=== PATIENT | female | born 1945 | race African-American/Black ===

== ENCOUNTER 2018-08-30 16:01 | Inpatient (IN) | payer MEDICARE, OTHER ==
[~2018-08-30] VITALS: Ht 157.5 cm; Wt 79.5 kg
[~2018-08-30 16:01] MED LIST: CLOP75TA33 PO; FLUT1DIS IH; FURO40TA5 PO; INSU3INS6 SUBCUT; LEVO25TA7 PO; NATE120T PO; NIAC500T23 PO; POTA10CA42 PO; ROSU5TAB PO; SITA50TA3 PO
[2018-08-30 17:28] LABS: BASOPHILS % 1.3 % (0.0-2.0); EOSINOPHILS % 1.6 % (0.0-5.0); HEMOGLOBIN. 11.9 g/dL (12.0-16.0); LYMPHOCYTES % 24.2 % (20.0-50.0); MEAN CORPUSCULAR HEMOGLOBIN 26.4 pg (28.0-32.0); MEAN CORPUSCULAR VOLUME 82.1 fL (81.0-99.0); MONOCYTES % 7.1 % (2.0-8.0); NEUTROPHILS % 65.8 % (40.0-76.0); PLATELET 294 x1000/uL (130-400); RED CELL DISTRIBUTION WIDTH 16.3 % (11.6-14.6)
[2018-08-30 17:32] LABS: INR 0.9; PROTHROMBIN TIME 9.5 sec (9.1-11.1)
[2018-08-30 17:33] LABS: CHLORIDE 113 mEq/L (98-107)
[2018-08-30] MEDS ORDERED: GUAIFENESIN 200MG/10ML SUGAR FREE UDC PO PRN (18:15)
[2018-08-30] MEDS ORDERED: ONDANSETRON HCL 4MG/2ML INJ IV PRN (18:15)
[2018-08-30] MEDS ORDERED: ZOLPIDEM TARTRATE 5MG TABLET PO PRN (18:15)
[2018-08-30] MEDS ORDERED: NITROGLYCERIN 0.4MG TABLET SL SL PRN (18:15)
[2018-08-30] MEDS ORDERED: CLONIDINE 0.1MG TABLET PO PRN (18:15)
[2018-08-30] MEDS ORDERED: ACETAMINOPHEN 325MG TABLET PO PRN (18:15)
[2018-08-30] MEDS ORDERED: MAGNESIUM/ALUMINUM HYDROXIDE/SIMETHICONE 30ML UDC PO PRN (18:15)
[2018-08-30] MEDS ORDERED: IPRATROPIUM/ALBUTEROL 0.5-3(2.5)MG/3ML NEB INH PRN (18:15)
[2018-08-30] MEDS ORDERED: DEXTROSE 50% WATER 50ML SYRINGE IV PRN (18:15)
[2018-08-30] MEDS ORDERED: ALBUTEROL (0.083%) 2.5MG/3ML NEB HHN ONE (18:15)
[2018-08-30 18:35] LABS: PHOSPHORUS 5.4 mg/dL (2.5-4.9)
[2018-08-30 18:39] LABS: T4 FREE 1.21 ng/dL (0.76-1.46)
[2018-08-30] MEDS ORDERED: TEMAZEPAM 15MG CAPSULE PO PRN (18:45)
[2018-08-30 18:58] LABS: FOLIC ACID (FOLATE) SERUM 8.4 ng/mL (>5.38)
[2018-08-30 19:04] LABS: HEPATITIS B SURFACE AB < 3.1 mIU/mL
[2018-08-30 19:15] LABS: HEPATITIS B SURFACE ANTIGEN NEGATIVE
[2018-08-30 19:44] LABS: HEPATITIS A AB IGM NEGATIVE (NEGATIVE)
[2018-08-30 19:52] LABS: BG BASE EXCESS -6.8 mmol/L (-2.0-2.0); BG CARBOXYHEMOGLOBIN 0.6 % (0.5-1.5); BG DEOXYHEMOGLOBIN 5.5 % (0.0-5.0); BG FRACTION INSPIRED OXYGEN 24; BG HCO3 ACT 16.9 mmol/L (22.0-26.0); BG METHEMOGLOBIN 0.3 % (0.0-1.5); BG OXYGEN SATURATION 94.5 % (92.0-98.5); BG OXYHEMOGLOBIN 93.6 % (94.0-97.0); BG PCO2 28.5 mmHg (35.0-45.0); BG PH 7.391 (7.350-7.450); BG PO2 73.3 mmHg (75.0-100.0); BG SAMPLE SITE RIGHT RADIAL; BG TOTAL HEMOGLOBIN 11.3 g/dL (12.0-18.0); BG VENT MODE NASAL CANNULA
[2018-08-30] MEDS ORDERED: TRAMADOL 50MG TABLET PO PRN (21:28)
[2018-08-30] MEDS ORDERED: MORPHINE SULFATE 4 MG/ML CPJ (NOT FOR IM USE) IV PRN (21:29)
[2018-08-30] MEDS: BLOOD SUGAR DIAGNOSTIC STRIP TEST SCH (22:00)
[2018-08-30] MEDS ORDERED: INSULIN GLARGINE UD 100 UNITS/ML SYR SUBCUT SCH (22:00)
[2018-08-30] MEDS: INSULIN LISPRO 100 UNITS/ML SUBCUT SCH (22:02)
[2018-08-30 23:00] VITALS: BP_SYST 130; BP_SYST 138; BP_DIAS 60; BP_DIAS 68
[2018-08-30 23:11] LABS: CREATINE KINASE MB FRACTION 1.6 ng/mL (0.5-3.6)
[2018-08-30] MEDS: FUROSEMIDE 40MG/4ML VIAL IVP SCH (23:53)
[2018-08-30] MEDS: METOPROLOL TARTRATE 25MG TABLET PO SCH (23:53)
[2018-08-30] MEDS: ATORVASTATIN CALCIUM 10MG TABLET PO SCH (23:53)
[2018-08-31] VITALS (17 sets, daily range): BP systolic 123–169; BP diastolic 56–88
[2018-08-31] MEDS ORDERED: METOLAZONE 10MG TABLET PO NR
[2018-08-31] MEDS ORDERED: INSULIN GLARGINE UD 100 UNITS/ML SYR SUBCUT SCH (01:00)
[2018-08-31] MEDS: IPRATROPIUM/ALBUTEROL 0.5-3(2.5)MG/3ML NEB INH SCH ×4 (05:09→21:54)
[2018-08-31] MEDS: BLOOD SUGAR DIAGNOSTIC STRIP TEST SCH ×4 (06:15→20:58)
[2018-08-31] MEDS: INSULIN LISPRO 100 UNITS/ML SUBCUT SCH ×4 (06:15→21:12)
[2018-08-31] MEDS: FUROSEMIDE 40MG/4ML VIAL IVP SCH (06:29)
[2018-08-31 07:03] LABS: EOSINOPHILS % 1.8 % (0.0-5.0); HEMATOCRIT. 30.5 % (36.0-48.0); HEMOGLOBIN. 9.8 g/dL (12.0-16.0); LYMPHOCYTES % 43.9 % (20.0-50.0); MEAN CORPUSCULAR HEMOGLOBIN 26.5 pg (28.0-32.0); MEAN CORPUSCULAR VOLUME 81.9 fL (81.0-99.0); MEAN PLATELET VOLUME 8.5 fl (7.4-10.4); MONOCYTES % 10.8 % (2.0-8.0); NEUTROPHILS % 42.5 % (40.0-76.0); PLATELET 253 x1000/uL (130-400); RED BLOOD CELL COUNT 3.72 mill/uL (4.2-5.4); RED CELL DISTRIBUTION WIDTH 16.1 % (11.6-14.6)
[2018-08-31 07:07] LABS: CHLORIDE 113 mEq/L (98-107)
[2018-08-31 07:32] LABS: CREATINE KINASE 61 IU/L (26-192)
[2018-08-31 07:35] LABS: CREATINE KINASE MB FRACTION 1.7 ng/mL (0.5-3.6)
[2018-08-31] MEDS ORDERED: SORBITOL 70% SOLN 30ML PO NR (08:30)
[2018-08-31] MEDS ORDERED: ALPRAZOLAM 0.25 MG TABLET PO NR (08:30)
[2018-08-31] MEDS ORDERED: CEFAZOLIN 1000MG PREMIX 50 ML IV ONE ×2 (08:45→09:32)
[2018-08-31] MEDS ORDERED: CITRIC ACID/SODIUM CITRATE SOLN 15ML UDC PO SCH (09:00)
[2018-08-31] MEDS: METOPROLOL TARTRATE 25MG TABLET PO SCH (09:00)
[2018-08-31] MEDS: ASPIRIN 81MG EC TABLET PO SCH (09:00)
[2018-08-31] MEDS ORDERED: ASPIRIN 325MG EC TABLET PO SCH (09:00)
[2018-08-31] MEDS ORDERED: FENTANYL CITRATE/PF 50MCG/ML 2ML VIAL ONE (09:33)
[2018-08-31] MEDS ORDERED: SODIUM BICARBONATE 4% (2.4MEQ) 5ML VIAL IV ONE (09:33)
[2018-08-31] MEDS ORDERED: LIDOCAINE HCL 1% 20ML VIAL (Pyxis) INJ ONE (09:33)
[2018-08-31] MEDS ORDERED: HEPARIN 1000 UNITS/ML 10ML ONE (09:33)
[2018-08-31] MEDS ORDERED: MIDAZOLAM HCL 2 MG/2 ML VIAL ONE (10:07)
[2018-08-31] MEDS ORDERED: FENTANYL CITRATE/PF 50MCG/ML 2ML VIAL IV ONE (10:15)
[2018-08-31] MEDS ORDERED: MIDAZOLAM HCL 2 MG/2 ML VIAL IV NR (10:15)
[2018-08-31] MEDS: LINAGLIPTIN 5MG TABLET PO SCH (12:49)
[2018-08-31] MEDS: FAMOTIDINE 20MG TABLET PO SCH (12:49)
[2018-08-31] MEDS: DILTIAZEM HCL 180MG CAPSULE CD 24HR PO SCH (12:49)
[2018-08-31] MEDS: FOLIC ACID/VITAMIN B COMP W-C TABLET PO SCH (12:49)
[2018-08-31] MEDS: DOCUSATE SODIUM 100MG CAPSULE PO PRN (12:52)
[2018-08-31] MEDS: CITALOPRAM HYDROBROMIDE 10MG TABLET PO SCH (18:11)
[2018-08-31] MEDS: ATORVASTATIN CALCIUM 10MG TABLET PO SCH (21:12)
[2018-08-31] MEDS: INSULIN GLARGINE UD 100 UNITS/ML SYR SUBCUT SCH (21:59)
[2018-09-01] VITALS: BP 128/70
[2018-09-01] MEDS: IPRATROPIUM/ALBUTEROL 0.5-3(2.5)MG/3ML NEB INH SCH ×3 (02:00→20:46)
[2018-09-01 04:00] VITALS: BP 137/69
[2018-09-01] MEDS: BLOOD SUGAR DIAGNOSTIC STRIP TEST SCH ×4 (06:11→20:50)
[2018-09-01] MEDS: INSULIN LISPRO 100 UNITS/ML SUBCUT SCH ×4 (06:17→21:40)
[2018-09-01] MEDS: LEVOTHYROXINE SODIUM 25MCG TABLET PO SCH (06:17)
[2018-09-01 08:00] VITALS: BP 148/62
[2018-09-01] MEDS: FOLIC ACID/VITAMIN B COMP W-C TABLET PO SCH (10:43)
[2018-09-01] MEDS: DILTIAZEM HCL 180MG CAPSULE CD 24HR PO SCH (10:44)
[2018-09-01] MEDS: FAMOTIDINE 20MG TABLET PO SCH (10:44)
[2018-09-01] MEDS: ASPIRIN 81MG EC TABLET PO SCH (10:44)
[2018-09-01] MEDS: FUROSEMIDE 40MG/4ML VIAL IVP SCH (10:44)
[2018-09-01] MEDS: CITALOPRAM HYDROBROMIDE 10MG TABLET PO SCH (10:44)
[2018-09-01] MEDS: LINAGLIPTIN 5MG TABLET PO SCH (10:44)
[2018-09-01 12:00] VITALS: BP 133/66
[2018-09-01] MEDS ORDERED: SORBITOL 70% SOLN 30ML PO NR (16:15)
[2018-09-01 17:00] VITALS: BP 131/49
[2018-09-01] MEDS: DOCUSATE SODIUM 100MG CAPSULE PO PRN (17:34)
[2018-09-01 17:58] LABS: BASOPHILS % 0.3 % (0.0-2.0); EOSINOPHILS % 1.8 % (0.0-5.0); HEMATOCRIT. 32.3 % (36.0-48.0); HEMOGLOBIN. 10.6 g/dL (12.0-16.0); LYMPHOCYTES % 25.5 % (20.0-50.0); MEAN CORPUSCULAR HEMOGLOBIN 26.6 pg (28.0-32.0); MEAN CORPUSCULAR VOLUME 81.5 fL (81.0-99.0); MEAN PLATELET VOLUME 8.8 fl (7.4-10.4); MONOCYTES % 11.4 % (2.0-8.0); PLATELET 244 x1000/uL (130-400); RED BLOOD CELL COUNT 3.96 mill/uL (4.2-5.4); RED CELL DISTRIBUTION WIDTH 16.1 % (11.6-14.6)
[2018-09-01 18:16] LABS: PHOSPHORUS 4.2 mg/dL (2.5-4.9)
[2018-09-01 20:00] VITALS: BP 136/70
[2018-09-01] MEDS: ATORVASTATIN CALCIUM 10MG TABLET PO SCH (21:39)
[2018-09-01] MEDS: INSULIN GLARGINE UD 100 UNITS/ML SYR SUBCUT SCH (21:40)
[2018-09-02] VITALS: BP 136/80
[2018-09-02] MEDS: IPRATROPIUM/ALBUTEROL 0.5-3(2.5)MG/3ML NEB INH SCH ×3 (01:46→20:14)
[2018-09-02 04:00] VITALS: BP 147/59
[2018-09-02] MEDS: BLOOD SUGAR DIAGNOSTIC STRIP TEST SCH ×4 (06:38→20:22)
[2018-09-02] MEDS: LEVOTHYROXINE SODIUM 25MCG TABLET PO SCH (06:42)
[2018-09-02] MEDS: INSULIN LISPRO 100 UNITS/ML SUBCUT SCH ×4 (06:43→21:12)
[2018-09-02 07:16] LABS: BASOPHILS % 0.7 % (0.0-2.0); EOSINOPHILS % 1.9 % (0.0-5.0); HEMATOCRIT. 30.2 % (36.0-48.0); HEMOGLOBIN. 9.7 g/dL (12.0-16.0); LYMPHOCYTES % 40.3 % (20.0-50.0); MEAN CORPUSCULAR HEMOGLOBIN 26.5 pg (28.0-32.0); MEAN PLATELET VOLUME 8.1 fl (7.4-10.4); MONOCYTES % 11.4 % (2.0-8.0); NEUTROPHILS % 45.7 % (40.0-76.0); PLATELET 227 x1000/uL (130-400); RED BLOOD CELL COUNT 3.68 mill/uL (4.2-5.4); RED CELL DISTRIBUTION WIDTH 15.8 % (11.6-14.6)
[2018-09-02 07:50] LABS: PHOSPHORUS 4.6 mg/dL (2.5-4.9)
[2018-09-02 08:00] VITALS: BP 147/61
[2018-09-02] MEDS: FOLIC ACID/VITAMIN B COMP W-C TABLET PO SCH (08:41)
[2018-09-02] MEDS: CITALOPRAM HYDROBROMIDE 10MG TABLET PO SCH (08:41)
[2018-09-02] MEDS: LINAGLIPTIN 5MG TABLET PO SCH (08:42)
[2018-09-02] MEDS: FAMOTIDINE 20MG TABLET PO SCH (08:42)
[2018-09-02] MEDS: ASPIRIN 81MG EC TABLET PO SCH (08:42)
[2018-09-02] MEDS: DILTIAZEM HCL 180MG CAPSULE CD 24HR PO SCH (08:42)
[2018-09-02] MEDS: FUROSEMIDE 40MG/4ML VIAL IVP SCH (08:43)
[2018-09-02] MEDS: ENOXAPARIN 40MG/0.4ML SYR SUBCUT SCH (08:45)
[2018-09-02 12:00] VITALS: BP 146/47
[2018-09-02] MEDS ORDERED: POLYETHYLENE GLYCOL 3350 (17GM) 1 DOSE PACK PO NR (14:00)
[2018-09-02 16:00] VITALS: BP 169/79
[2018-09-02 20:00] VITALS: BP 140/80
[2018-09-02] MEDS: ATORVASTATIN CALCIUM 10MG TABLET PO SCH (20:16)
[2018-09-02] MEDS: INSULIN GLARGINE UD 100 UNITS/ML SYR SUBCUT SCH (21:12)
[2018-09-03] VITALS: BP 122/80
[2018-09-03] MEDS: IPRATROPIUM/ALBUTEROL 0.5-3(2.5)MG/3ML NEB INH SCH ×3 (01:54→22:22)
[2018-09-03 04:00] VITALS: BP 150/70
[2018-09-03] MEDS: INSULIN LISPRO 100 UNITS/ML SUBCUT SCH ×5 (06:01→22:01)
[2018-09-03] MEDS: LEVOTHYROXINE SODIUM 25MCG TABLET PO SCH (06:01)
[2018-09-03] MEDS: BLOOD SUGAR DIAGNOSTIC STRIP TEST SCH ×4 (06:01→20:35)
[2018-09-03 06:39] LABS: BASOPHILS % 1.1 % (0.0-2.0); HEMATOCRIT. 30.7 % (36.0-48.0); LYMPHOCYTES % 39.4 % (20.0-50.0); MEAN CORPUSCULAR HEMOGLOBIN 26.7 pg (28.0-32.0); MEAN CORPUSCULAR VOLUME 82.2 fL (81.0-99.0); MEAN PLATELET VOLUME 8.5 fl (7.4-10.4); NEUTROPHILS % 46.5 % (40.0-76.0); PLATELET 225 x1000/uL (130-400); RED BLOOD CELL COUNT 3.74 mill/uL (4.2-5.4)
[2018-09-03 07:43] LABS: PHOSPHORUS 5.3 mg/dL (2.5-4.9)
[2018-09-03 08:00] VITALS: BP 149/78
[2018-09-03] MEDS: ENOXAPARIN 40MG/0.4ML SYR SUBCUT SCH ×2 (09:00→13:09)
[2018-09-03] MEDS: ASPIRIN 81MG EC TABLET PO SCH ×2 (09:00→13:08)
[2018-09-03] MEDS: DILTIAZEM HCL 300MG CAPSULE SR 24HR PO SCH (09:00)
[2018-09-03] MEDS: FUROSEMIDE 40MG/4ML VIAL IVP SCH (09:00)
[2018-09-03] MEDS: LINAGLIPTIN 5MG TABLET PO SCH ×2 (09:00→13:08)
[2018-09-03] MEDS: FOLIC ACID/VITAMIN B COMP W-C TABLET PO SCH ×2 (09:00→13:09)
[2018-09-03] MEDS: FAMOTIDINE 20MG TABLET PO SCH ×2 (09:00→13:08)
[2018-09-03] MEDS: CITALOPRAM HYDROBROMIDE 10MG TABLET PO SCH ×2 (09:00→13:08)
[2018-09-03 11:51] VITALS: BP 158/64
[2018-09-03 15:50] VITALS: BP 161/83
[2018-09-03] MEDS ORDERED: HEPARIN SODIUM 1,000 UNIT/1ML VIAL IV NR (16:15)
[2018-09-03 20:00] VITALS: BP 160/81
[2018-09-03] MEDS: ATORVASTATIN CALCIUM 10MG TABLET PO SCH (21:19)
[2018-09-03] MEDS: INSULIN GLARGINE UD 100 UNITS/ML SYR SUBCUT SCH (21:24)
[2018-09-04] VITALS: BP 166/73
[2018-09-04] MEDS: IPRATROPIUM/ALBUTEROL 0.5-3(2.5)MG/3ML NEB INH SCH ×2 (02:40→07:33)
[2018-09-04 04:01] VITALS: BP 164/84
[2018-09-04] MEDS: BLOOD SUGAR DIAGNOSTIC STRIP TEST SCH ×4 (05:22→21:00)
[2018-09-04] MEDS: LEVOTHYROXINE SODIUM 25MCG TABLET PO SCH (05:42)
[2018-09-04] MEDS: INSULIN LISPRO 100 UNITS/ML SUBCUT SCH ×4 (05:49→21:36)
[2018-09-04 08:00] VITALS: BP 132/67
[2018-09-04] MEDS: FOLIC ACID/VITAMIN B COMP W-C TABLET PO SCH (09:06)
[2018-09-04] MEDS: LINAGLIPTIN 5MG TABLET PO SCH (09:06)
[2018-09-04] MEDS: FAMOTIDINE 20MG TABLET PO SCH (09:06)
[2018-09-04] MEDS: CITALOPRAM HYDROBROMIDE 10MG TABLET PO SCH (09:09)
[2018-09-04] MEDS: DILTIAZEM HCL 300MG CAPSULE SR 24HR PO SCH (09:09)
[2018-09-04] MEDS: ENOXAPARIN 40MG/0.4ML SYR SUBCUT SCH (09:10)
[2018-09-04] MEDS: ASPIRIN 81MG EC TABLET PO SCH (09:14)
[2018-09-04 12:00] VITALS: BP 138/67
[2018-09-04 16:00] VITALS: BP 149/63
[2018-09-04 20:00] VITALS: BP 138/78
[2018-09-04] MEDS: ATORVASTATIN CALCIUM 10MG TABLET PO SCH (21:34)
[2018-09-04] MEDS: INSULIN GLARGINE UD 100 UNITS/ML SYR SUBCUT SCH (21:36)
[2018-09-05] VITALS: BP 152/67
[2018-09-05 04:00] VITALS: BP 140/71
[2018-09-05] MEDS: BLOOD SUGAR DIAGNOSTIC STRIP TEST SCH ×2 (05:50→12:11)
[2018-09-05] MEDS: LEVOTHYROXINE SODIUM 25MCG TABLET PO SCH (05:51)
[2018-09-05] MEDS: INSULIN LISPRO 100 UNITS/ML SUBCUT SCH ×2 (06:02→12:11)
[2018-09-05 06:58] LABS: BASOPHILS % 1.3 % (0.0-2.0); EOSINOPHILS % 1.7 % (0.0-5.0); HEMATOCRIT. 34.4 % (36.0-48.0); HEMOGLOBIN. 11.1 g/dL (12.0-16.0); LYMPHOCYTES % 39.7 % (20.0-50.0); MEAN CORPUSCULAR VOLUME 83.7 fL (81.0-99.0); MONOCYTES % 12.5 % (2.0-8.0); NEUTROPHILS % 44.8 % (40.0-76.0); PLATELET 224 x1000/uL (130-400); RED BLOOD CELL COUNT 4.11 mill/uL (4.2-5.4); RED CELL DISTRIBUTION WIDTH 15.5 % (11.6-14.6)
[2018-09-05 07:51] LABS: PHOSPHORUS 4.4 mg/dL (2.5-4.9)
[2018-09-05 08:00] VITALS: BP 147/76
[2018-09-05] MEDS: FAMOTIDINE 20MG TABLET PO SCH (08:41)
[2018-09-05] MEDS: FOLIC ACID/VITAMIN B COMP W-C TABLET PO SCH (08:41)
[2018-09-05] MEDS: CITALOPRAM HYDROBROMIDE 10MG TABLET PO SCH (08:41)
[2018-09-05] MEDS: ASPIRIN 81MG EC TABLET PO SCH (08:41)
[2018-09-05] MEDS: LINAGLIPTIN 5MG TABLET PO SCH (08:42)
[2018-09-05] MEDS: ENOXAPARIN 40MG/0.4ML SYR SUBCUT SCH (08:42)
[2018-09-05] MEDS: DILTIAZEM HCL 300MG CAPSULE SR 24HR PO SCH (09:00)
[2018-09-05] MEDS ORDERED: FLUTICASONE/VILANTEROL 200-25 BLST.W.DEV ORI SCH (12:00)
[2018-09-05 15:32] VITALS: BP 147/76
[2018-09-06] MEDS ORDERED: CITALOPRAM HYDROBROMIDE 20MG TABLET PO SCH (09:00)
== END 2018-09-05 16:51 | disposition home or self-care (01) | DRG 286 ==
LOC: ER 16:44 → 8WST 18:04 → SUPCPDRO 18:06 → EDBEDREQ 18:08 → ENRESERV 20:50
PROVIDERS: ADMIT Internal Medicine; ATTEND Internal Medicine
PROC: 02H633Z Insertion of Infusion Device into Right Atrium, Percutaneous Approach (ICD-10-PCS; principal; 2018-08-31)
PROC: B2141ZZ Fluoroscopy of Right Heart using Low Osmolar Contrast (ICD-10-PCS; 2018-08-31)
PROC: B244ZZZ Ultrasonography of Right Heart (ICD-10-PCS; 2018-08-31)
PROC: 5A1D70Z Performance of Urinary Filtration, Intermittent, Less than 6 Hours Per Day (ICD-10-PCS; 2018-08-31)
PROC: 5A1D70Z Performance of Urinary Filtration, Intermittent, Less than 6 Hours Per Day (ICD-10-PCS; 2018-09-03)
PROC: 5A1D70Z Performance of Urinary Filtration, Intermittent, Less than 6 Hours Per Day (ICD-10-PCS; 2018-09-05)
DX: I13.2 Hypertensive heart and chronic kidney disease with heart failure and with stage 5 chronic kidney disease, or end stage renal disease (principal); I50.33 Acute on chronic diastolic (congestive) heart failure; J96.01 Acute respiratory failure with hypoxia; N18.6 End stage renal disease; E43 Unspecified severe protein-calorie malnutrition; E87.2 Acidosis; N25.81 Secondary hyperparathyroidism of renal origin; N17.9 Acute kidney failure, unspecified; M19.011 Primary osteoarthritis, right shoulder; K21.9 Gastro-esophageal reflux disease without esophagitis; J44.9 Chronic obstructive pulmonary disease, unspecified; E11.22 Type 2 diabetes mellitus with diabetic chronic kidney disease; E78.00 Pure hypercholesterolemia, unspecified; B19.20 Unspecified viral hepatitis C without hepatic coma; E11.65 Type 2 diabetes mellitus with hyperglycemia; E03.9 Hypothyroidism, unspecified; D63.1 Anemia in chronic kidney disease; F32.9 Major depressive disorder, single episode, unspecified; F41.9 Anxiety disorder, unspecified; E11.42 Type 2 diabetes mellitus with diabetic polyneuropathy; E78.5 Hyperlipidemia, unspecified; E83.39 Other disorders of phosphorus metabolism; Z79.84 Long term (current) use of oral hypoglycemic drugs; Z80.0 Family history of malignant neoplasm of digestive organs; Z82.49 Family history of ischemic heart disease and other diseases of the circulatory system; Z83.3 Family history of diabetes mellitus; Z86.73 Personal history of transient ischemic attack (TIA), and cerebral infarction without residual deficits; Z87.442 Personal history of urinary calculi; Z98.41 Cataract extraction status, right eye; Z79.2 Long term (current) use of antibiotics; Z79.4 Long term (current) use of insulin; Z79.899 Other long term (current) drug therapy; Z68.32 Body mass index [BMI] 32.0-32.9, adult
CPT/HCPCS: 36415; 36558; 36600; 71045; 76770; 76937; 77001; 80048; 80061; 82375; 82550; 82553; 82607; 82746; 82805; 82962; 83036; 83540; 83550; 83735; 84100; 84439; 84443; 84484; 86705; 86706; 86709; 86803; 87340; 93005; 93306; 93970; 94640; 96374; 96375; 97116; 97162; 97166; 97530; 99285; C1750; J0690; J1644; J1650; J1815; J1940; J2250; J2270; J3010; J3490; J7050; J7611; J7620